=== PATIENT | female | born 1985 | race American Indian/Alaskan Native ===

== ENCOUNTER 2017-01-14 14:57 | Emergency (ER) | payer OTHER ==
[2017-01-14] MEDS ORDERED: DECADRON IM ONE (18:01)
[2017-01-14] MEDS ORDERED: BENADRYL IM ONE (18:01)
[2017-01-14] MEDS ORDERED: ZOFRAN ODT PO ONE (18:01)
[2017-01-14] MEDS ORDERED: PEPCID PO ONE (18:01)
--- NOTE | 2017-01-14 19:57 | Emergency Department Report ---
Entered by SHAR FERNANDEZ, acting as scribe for KEZIA LEDESMA PA. ED Allergic Reaction HPI - General Chief complaint: Allergic Reaction Stated complaint: ALLERGIC REACTION TO MEDICATION Time Seen by Provider: 01/14/17 17:10 Source: patient, family Mode of arrival: Ambulatory Limitations: No Limitations - History of Present Illness Initial Comments: 31 y/o female with no significant PMHx presents to the ED c/o an allergic reaction that began last night. Patient states her symptoms began after taking Bactrim for dental pain. Notes she's taken Bactrim before with no Hx of similar symptoms. Reports associated headache, erythematous rash on bilateral palms, and generalized abdominal pain, but she denies wheezing, nausea, vomiting, facial swelling, lip swelling, fever, chills, sore throat, difficulty swallowing , and hoarseness. Reports dizziness, vomiting, and lip swelling last night, but she states those symptoms have resolved. Allergic to sulfamethoxazole and trimethoprim. MD Complaint: allergic reaction -: Last night Exposure: medication (Bactrim) Symptoms: rash (bilateral palms), itching (bilateral palms), other (headache), abdominal pain. denies: facial swelling, lip swelling, difficulty swallowing, difficulty breathing, orolingual swelling, hoarseness, syncopy, dizziness, nausea, vomiting Severity: mild Treatment Prior to Arrival: none Previous Allergy History: none - Related Data Previous Rx's Medication Instructions Recorded Last Taken Type Acetaminophen/Codeine [Tylenol #3] 1 tab PO Q6H PRN #20 tab 10/04/15 Unknown Rx Ibuprofen [Motrin] 600 mg PO Q8H PRN #40 tablet 10/04/15 Unknown Rx Sulfamethoxazole/Trimethoprim 1 each PO BID #20 tablet 10/04/15 Unknown Rx [Bactrim DS TAB] hydrOXYzine HCL [Atarax] 25 mg PO Q6HR PRN #12 tablet 01/14/17 Unknown Rx methylPREDNISolone [Medrol] 4 mg PO QAM #1 tab.ds.pk 01/14/17 Unknown Rx Allergies Allergy/AdvReac Type Severity Reaction Status Date / Time sulfamethoxazole Allergy Dizziness Verified 01/14/17 15:02 [From Bactrim] trimethoprim [From Bactrim] Allergy Dizziness Verified 01/14/17 15:02 ED Review of Systems Comment: All other systems reviewed and negative Constitutional: denies: chills, diaphoresis, fever, weakness Eyes: denies: eye pain, eye discharge, vision change ENT: denies: ear pain, throat pain, dental pain, hearing loss, epistaxis, congestion Respiratory: denies: cough, orthopnea, shortness of breath, SOB with exertion, SOB at rest, stridor, wheezing Cardiovascular: denies: chest pain, palpitations, dyspnea on exertion, orthopnea , edema, syncope, paroxysmal nocturnal dyspnea Endocrine: no symptoms reported Gastrointestinal: abdominal pain. denies: nausea, vomiting, diarrhea Musculoskeletal: denies: back pain, joint swelling, arthralgia, myalgia Skin: rash (bilateral palms with associated itching). denies: lesions Neurological: headache. denies: weakness, numbness, paresthesias, confusion, abnormal gait, vertigo Psychiatric: denies: anxiety, depression Hematological/Lymphatic: denies: easy bleeding, easy bruising ED Past Medical Hx - Past Medical History Previous Medical History?: No - Surgical History Past Surgical History?: No - Family History Family history: no significant - Social History Smoking Status: Current Every Day Smoker Substance Use Type: None - Medications Home Medications: Home Medications Medication Instructions Recorded Confirmed Last Taken Type Acetaminophen/Codeine [Tylenol #3] 1 tab PO Q6H PRN #20 tab 10/04/15 Unknown Rx Ibuprofen [Motrin] 600 mg PO Q8H PRN #40 tablet 10/04/15 Unknown Rx Sulfamethoxazole/Trimethoprim 1 each PO BID #20 tablet 10/04/15 Unknown Rx [Bactrim DS TAB] hydrOXYzine HCL [Atarax] 25 mg PO Q6HR PRN #12 tablet 01/14/17 Unknown Rx methylPREDNISolone [Medrol] 4 mg PO QAM #1 tab.ds.pk 01/14/17 Unknown Rx ED Physical Exam - General Limitations: No Limitations General appearance: alert, in no apparent distress - Head Head exam: Present: atraumatic, normocephalic - Eye Eye exam: Present: normal appearance, PERRL, EOMI Pupils: Present: normal accommodation - ENT ENT exam: Present: normal exam, normal orophraynx, mucous membranes moist, TM's normal bilaterally, normal external ear exam - Expanded ENT Exam Expanded Ear exam: Present: normal external inspection Mouth exam: Present: normal external inspection (uvula is midline, oral airway is patent), tongue normal, other (no angioedema, facial swelling, lip swelling or tracheal deviation). Absent: drooling, trismus, muffled voice, tongue elevation, laceration Teeth exam: Present: normal inspection Throat exam: Positive: normal inspection. Negative: tonsillar erythema, tonsillomegaly, tonsillar exudate, R peritonsillar mass, L peritonsillar mass - Neck Neck exam: Present: normal inspection (supple), full ROM. Absent: tenderness, meningismus, lymphadenopathy, thyromegaly - Respiratory Respiratory exam: Present: normal lung sounds bilaterally. Absent: respiratory distress, wheezes, rales, rhonchi, stridor, accessory muscle use, decreased breath sounds - Cardiovascular Cardiovascular Exam: Present: regular rate, normal rhythm, normal heart sounds. Absent: systolic murmur, diastolic murmur - GI/Abdominal GI/Abdominal exam: Present: soft, normal bowel sounds. Absent: distended, tenderness, guarding, rebound, rigid - Extremities Exam Extremities exam: Present: normal inspection, full ROM, normal capillary refill. Absent: tenderness, pedal edema, joint swelling, calf tenderness - Back Exam Back exam: Present: normal inspection, full ROM. Absent: tenderness - Neurological Exam Neurological exam: Present: alert, oriented X3, normal gait, reflexes normal. Absent: motor sensory deficit (on) - Psychiatric Psychiatric exam: Present: normal affect, normal mood - Skin Skin exam: Present: warm, dry, intact, rash (erythematous rash on bilateral palms). Absent: normal color (really), cyanosis ED Course Vital Signs 01/14/17 15:02 Temperature 98.8 F Pulse Rate 102 H Respiratory 20 Rate Blood Pressure 142/88 O2 Sat by Pulse 100 Oximetry Pulse is 96 bpm - Reevaluation(s) Reevaluation #1: 01/14/17 19:48 Patient given Decadron 10 mg IM, Benadryl 50 mg IM and Pepcid 40 mg by mouth. Rash improving. ED Medical Decision Making - Medical Decision Making ED course: Patient here reports that she took a Bactrim yesterday for toothache prevent infection and she developed an allergic reaction from the Bactrim. She says she just felt dizzy and was vomited in yesterday and she had redness and itching to her palm which is better today. She said her lips are swollen last night and the roof of her mild felt swollen. She says she had no difficulty swallowing, breathing. She says she had a little cough but there were no wheezing. She says she feels better but her palms are still red so she came to the emergency room to be evaluated. Patient found to have minor allergic reaction which is resolved then. She was given Decadron 10 mg IM, Benadryl 50 mg IM and Pepcid 40 mg by mouth and rash subsiding. She has no episode of anaphylaxis in emergency room. I discussed the patient that if she develops swelling to her tongue, throat, difficulty breathing, wheezing cough, increasing rash to return to the emergency room immediately. Assessment/plan 1. Allergic reaction, resolved then 2. Allergic rash Patient instructed to refrain from using Bactrim in the past and make sure she let medical facility that she goes to That she is allergic to Bactrim. She was discharged home a prescription for Atarax and Medrol Dosepak and to follow up with her primary care physician tomorrow ED Disposition Clinical Impression: Allergic drug rash Allergic reaction caused by a drug Qualifiers: Encounter type: initial encounter Qualified Code(s): T78.40XA - Allergy, unspecified, initial encounter Disposition: DC- TO HOME OR SELFCARE Is pt being admited?: No Does the pt Need Aspirin: No Condition: Stable Instructions: Urticaria (ED) Additional Instructions: Please do not use Bactrim or sulfa-based medication in the future Return to emergency room if he developed increasing rash, shortness of breath, difficulty breathing, swelling to throat or tongue, swollen lips or neck, cough or wheezing. Follow-up via primary care in the morning. Take medication as prescribed. Prescriptions: hydrOXYzine HCL [Atarax] 25 mg PO Q6HR PRN #12 tablet PRN Reason: Itching methylPREDNISolone [Medrol] 4 mg PO QAM #1 tab.ds.pk Referrals: PRIMARY CARE, [Primary Care Provider] - 01/15/17 Forms: Accompanied Note, Work/School Release Form(ED) This documentation as recorded by the JIM garland JASMINE,accurately reflects the service I personally performed and the decisions made by me,KEZIA LEDESMA PA.
[2017-01-14 20:49] VITALS: BP 118/78
== END 2017-01-14 20:00 | disposition home or self-care (01) ==
LOC: ED 14:57
DX: T37.0X5A Adverse effect of sulfonamides, initial encounter (principal); F17.200 Nicotine dependence, unspecified, uncomplicated; Z88.2 Allergy status to sulfonamides; Z88.8 Allergy status to other drugs, medicaments and biological substances
CPT/HCPCS: 96372; 99282; J1100; J1200; Q0162

== ENCOUNTER 2021-09-04 11:24 | Emergency (ER) | payer SELFPAY | END 2021-09-04 11:29 | disposition left against medical advice (07) | LOC: ED 11:24 | DX: K08.89 Other specified disorders of teeth and supporting structures (principal); Z53.21 Procedure and treatment not carried out due to patient leaving prior to being seen by health care provider ==